=== PATIENT | female | born 2000 | race Two or more races ===

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

== ENCOUNTER 2022-03-10 10:30 | Inpatient (IN) | payer OTHER ==
[2022-03-10] MEDS ORDERED: ELECTROLYTE-148 SOLN 1,000 ML IV SCH (12:00)
[2022-03-10 12:08] LABS: BASO % 0.7 % (0-2.0); EOS % 0.5 % (0-4.5); HEMATOCRIT 35.6 % (32.4-45.2); HEMOGLOBIN 10.8 GM/dL (10.7-15.3); LYMPH % 12.1 % (8-40); MCH 21.8 pg (25.7-33.7); MCHC 30.4 g/dl (32.0-36.0); MEAN CELL VOLUME 71.8 fl (80-96); MONO % 6.3 % (3.8-10.2); NEUT % 80.4 % (42.8-82.8); PLATELET COUNT 303 10^3/uL (134-434); RBC 4.96 M/mm3 (3.60-5.2); RDW 19.7 % (11.6-15.6); WHITE BLOOD COUNT 12.8 K/mm3 (4.0-10.0)
[2022-03-10 12:17] LABS: INR 0.98 (0.83-1.09); PROTHROMBIN TIME (PATIENT) 11.3 SEC (9.7-13.0)
[2022-03-10 12:19] LABS: ACTIVATED PTT 30.2 SECONDS (25.2-36.5)
[2022-03-10 12:29] LABS: BLOOD UREA NITROGEN 10.5 mg/dL (7-18); CALCIUM 8.5 mg/dL (8.5-10.1)
[2022-03-10 12:33] LABS: CREATININE 0.8 mg/dL (0.55-1.3)
[2022-03-10 13:33] VITALS: BMI 39.6
[2022-03-10] MEDS ORDERED: BUTORPHANOL TARTRATE 1 MG/ML VIAL ONE (20:54)
[2022-03-10] MEDS ORDERED: PROMETHAZINE HCL 25 MG/1 ML VIAL ONE (20:54)
[2022-03-10] MEDS ORDERED: PROMETHAZINE HCL 25 MG/1 ML VIAL IVPUSH ONE (21:03)
[2022-03-10] MEDS ORDERED: BUTORPHANOL TARTRATE 1 MG/ML VIAL IVPB ONE (21:03)
[2022-03-10] MEDS ORDERED: OXYTOCIN 30 UNITS in 0.9% NS 30 UNIT/500 ML INFUS.BAG IVPB SCH (22:30)
[2022-03-10] MEDS ORDERED: OXYTOCIN 20 UNITS in 0.9% NS 20 UNIT/1,000 ML INFUS.BAG IV ONE (23:36)
[2022-03-11] MEDS ORDERED: BENZOCAINE 28 GM HEMORRHOIDAL OINTMENT TP PRN (00:39)
[2022-03-11] MEDS ORDERED: BENZOCAINE 20% 57 GM BOTTLE TP PRN (00:39)
[2022-03-11] MEDS ORDERED: oxyCODONE HCL 5 MG TABLET PO PRN (00:39)
[2022-03-11] MEDS ORDERED: BISACODYL 10 MG SUPP.RECT RC PRN (00:39)
[2022-03-11] MEDS ORDERED: WITCH HAZEL 50% (TUCKS) 40 PAD/JAR PAD TP PRN (00:39)
[2022-03-11] MEDS ORDERED: METHYLERGONOVINE MALEATE 0.2 MG/1 ML AMP IM PRN (00:39)
[2022-03-11] MEDS ORDERED: OXYTOCIN 20 UNITS in 0.9% NS 20 UNIT/1,000 ML INFUS.BAG IV SCH (00:45)
[2022-03-11 00:58] LABS: CORD HCO3 19.6 mmHg (20-29); CORD PCO2 53.3 mmHg (30-78); CORD pH 7.183 (7.14-7.44)
[2022-03-11] MEDS ORDERED: IBUPROFEN 600 MG TABLET (FP) PO ONE (01:30)
[2022-03-11] MEDS: IBUPROFEN 600 MG TABLET (FP) PO PRN ×2 (01:33→09:27)
[2022-03-11 01:55] LABS: CORD BASE EXCESS -6.4 mmol/L (0-2); CORD HCO3 20.7 mmHg (20-29); CORD PCO2 46.5 mmHg (30-78); CORD pH 7.267 (7.14-7.44)
[2022-03-11] MEDS: ACETAMINOPHEN 325 MG TABLET (FP) PO PRN ×2 (02:11→21:50)
[2022-03-11] MEDS: FERROUS SO4 325 MG TABLET (FP) PO SCH ×2 (09:27→17:35)
[2022-03-11] MEDS: PRENATAL VITAMINS W/ FOLIC ACID TABLET (FP) PO SCH (09:27)
[2022-03-11 09:34] LABS: BASO % 0.3 % (0-2.0); EOS % 0.1 % (0-4.5); HEMATOCRIT 29.3 % (32.4-45.2); HEMOGLOBIN 8.9 GM/dL (10.7-15.3); LYMPH % 11.7 % (8-40); MCH 21.6 pg (25.7-33.7); MCHC 30.3 g/dl (32.0-36.0); MEAN CELL VOLUME 71.3 fl (80-96); MEAN PLT VOLUME 8.5 fl (7.5-11.1); MONO % 5.1 % (3.8-10.2); NEUT % 82.8 % (42.8-82.8); PLATELET COUNT 253 10^3/uL (134-434); RDW 19.2 % (11.6-15.6); WHITE BLOOD COUNT 18.9 K/mm3 (4.0-10.0)
[2022-03-11 11:18] VITALS: RESP 18
[2022-03-12] MEDS: IBUPROFEN 600 MG TABLET (FP) PO PRN (08:09)
[2022-03-12] MEDS: FERROUS SO4 325 MG TABLET (FP) PO SCH (08:10)
[2022-03-12] MEDS: PRENATAL VITAMINS W/ FOLIC ACID TABLET (FP) PO SCH (09:13)
[2022-03-12 10:21] VITALS: BP 121/65; PULSE 96; TEMP 98.2
[2022-03-12] MEDS ORDERED: SENNOSIDES/DOCUSATE COMBO (SENNA PLUS) TABLET (UD) PO PRN (22:00)
== END 2022-03-12 11:55 | disposition home or self-care (01) | DRG 560 ==
LOC: JLDR 10:30 → J3W 03-11 02:03
PROVIDERS: ADMIT Obstetrics & Gynecology; ATTEND Obstetrics & Gynecology
PROC: 10E0XZZ Delivery of Products of Conception, External Approach (ICD-10-PCS; principal; 2022-03-10)
PROC: 0HQ9XZZ Repair Perineum Skin, External Approach (ICD-10-PCS; 2022-03-10)
PROC: 0W8NXZZ Division of Female Perineum, External Approach (ICD-10-PCS; 2022-03-10)
PROC: 10907ZC Drainage of Amniotic Fluid, Therapeutic from Products of Conception, Via Natural or Artificial Opening (ICD-10-PCS; 2022-03-10)
DX: O48.0 Post-term pregnancy (principal); O41.03X0 Oligohydramnios, third trimester, not applicable or unspecified; O77.0 Labor and delivery complicated by meconium in amniotic fluid; O99.214 Obesity complicating childbirth; E66.9 Obesity, unspecified; O90.81 Anemia of the puerperium; D50.9 Iron deficiency anemia, unspecified; Z3A.40 40 weeks gestation of pregnancy; Z37.0 Single live birth
CPT/HCPCS: 36415; 36600; 59409; 80048; 82803; 85025; 85610; 85730; 86780; 86850; 86900; 86901; C9803-CS; U0003; U0005

== ENCOUNTER 2023-02-08 19:48 | Emergency (ER) | payer OTHER ==
[2023-02-08 20:02] VITALS: BP 119/77; PULSE 88; RESP 16; TEMP 98; BMI 36.0
== END 2023-02-08 22:57 | disposition home or self-care (01) ==
LOC: FER 19:48
DX: O26.891 Other specified pregnancy related conditions, first trimester (principal); R10.30 Lower abdominal pain, unspecified; O99.891 Other specified diseases and conditions complicating pregnancy; M54.50 Low back pain, unspecified; Z3A.01 Less than 8 weeks gestation of pregnancy
CPT/HCPCS: 76817-TC; 81003; 81015; 84703; 87086; 99284-25

== ENCOUNTER 2023-05-14 21:23 | Emergency (ER) | payer OTHER ==
[2023-05-14 21:38] VITALS: BP 125/69; PULSE 103; RESP 18; TEMP 98.9; BMI 36.3
[2023-05-14 23:05] LABS: HEMATOCRIT 32.1 % (32.4-45.2); HEMOGLOBIN 10.5 G/dL (10.7-15.3); MCH 25.8 pg (25.7-33.7); MCHC 32.6 g/dl (32.0-36.0); MEAN PLT VOLUME 9.3 fl (7.5-11.1); PLATELET COUNT 267.5 10^3/uL (134-434); RBC 4.06 10^6/uL (3.60-5.2); RDW 17.8 % (11.6-15.6); WHITE BLOOD COUNT 13.3 10^3/uL (4.0-10.8)
[2023-05-14 23:07] LABS: HCG,QUALITATIVE URINE Positive
[2023-05-14 23:20] LABS: ALBUMIN 3.4 g/dl (3.4-5.0); ANISOCYTOSIS 1+; BILIRUBIN,TOTAL 0.2 mg/dl (0.2-1); CALCIUM 8.9 mg/dl (8.5-10.1); CREATININE 0.7 mg/dl (0.6-1.3); OVALOCYTE 1+; TOT PROT 6.5 g/dl (6.4-8.2)
== END 2023-05-14 23:46 | disposition home or self-care (01) ==
LOC: FER 21:23
DX: O20.9 Hemorrhage in early pregnancy, unspecified (principal); Z3A.22 22 weeks gestation of pregnancy
CPT/HCPCS: 36415; 76816-TC; 80053; 81003; 81015; 84703; 85027; 99284-25

== ENCOUNTER 2023-09-11 21:45 | Inpatient (IN) | payer OTHER ==
[2023-09-11] MEDS: LACTATED RINGERS SOLUTION 1,000 ML/1,000 ML INFUS.BAG IV SCH (22:40)
[2023-09-11 22:51] LABS: BASO % 0.2 % (0-2.0); EOS % 0.3 % (0-4.5); HEMATOCRIT 33.4 % (32.4-45.2); HEMOGLOBIN 10.7 GM/dL (10.7-15.3); LYMPH % 21.4 % (8-40); MCH 22.7 pg (25.7-33.7); MCHC 31.9 g/dl (32.0-36.0); MEAN PLT VOLUME 8.8 fl (7.5-11.1); MONO % 8.7 % (3.8-10.2); NEUT % 69.4 % (42.8-82.8); PLATELET COUNT 320 10^3/uL (134-434)
[2023-09-11 22:52] VITALS: BMI 37.4
[2023-09-11 23:01] LABS: INR 0.96 (0.83-1.09)
[2023-09-11 23:04] LABS: ACTIVATED PTT 28.9 SECONDS (25.2-36.5)
[2023-09-11 23:30] LABS: POTASSIUM 3.9 mmol/L (3.5-5.1)
[2023-09-11 23:32] LABS: BLOOD UREA NITROGEN 8.8 mg/dL (7-18)
[2023-09-11 23:35] LABS: CREATININE 0.5 mg/dL (0.55-1.3)
[2023-09-11] MEDS ORDERED: FENTANYL/BUPIVACAINE/NS/PF - PCEA - 50 ML DISP.SYRIN EP ONE (23:54)
[2023-09-12] MEDS ORDERED: FENTANYL CITRATE/PF 50 MCG/ML VIAL ONE
[2023-09-12] MEDS ORDERED: BUPIVACAINE HCL/PF 0.25% (2.5MG/ML) 10 ML VIAL ONE (00:01)
[2023-09-12] MEDS: FENTANYL/BUPIVACAINE/NS/PF - PCEA - 50 ML DISP.SYRIN EP SCH (00:20)
[2023-09-12] MEDS ORDERED: NALOXONE HCL 0.4 MG/ML VIAL IVPUSH PRN (00:24)
[2023-09-12] MEDS ORDERED: LIDOCAINE HCL 1% PRESERVATIVE FREE - 30ML VIAL ONE (02:08)
[2023-09-12] MEDS ORDERED: OXYTOCIN 20 UNITS in 0.9% NS 20 UNIT/1,000 ML INFUS.BAG IV ONE ×2 (02:09→02:10)
[2023-09-12] MEDS: OXYTOCIN 20 UNITS in 0.9% NS 20 UNIT/1,000 ML INFUS.BAG IV SCH (02:20)
[2023-09-12] MEDS ORDERED: BISACODYL 10 MG SUPP.RECT RC PRN (02:37)
[2023-09-12] MEDS ORDERED: BENZOCAINE 28 GM HEMORRHOIDAL OINTMENT TP PRN (02:37)
[2023-09-12] MEDS ORDERED: WITCH HAZEL 50% (TUCKS) 40 PAD/JAR PAD TP PRN (02:37)
[2023-09-12] MEDS ORDERED: oxyCODONE HCL 5 MG TABLET PO PRN (02:37)
[2023-09-12] MEDS ORDERED: METHYLERGONOVINE MALEATE 0.2 MG/1 ML AMP IM PRN (02:37)
[2023-09-12] MEDS ORDERED: BENZOCAINE 20% 57 GM BOTTLE TP PRN (02:37)
[2023-09-12 03:01] LABS: CORD BASE EXCESS -1.9 mmol/L (0-2); CORD HCO3 23.1 mmHg (20-29); CORD PCO2 40.5 mmHg (30-78); CORD pH 7.374 (7.14-7.44)
[2023-09-12 03:03] LABS: CORD BASE EXCESS -1.8 mmol/L (0-2); CORD HCO3 22.4 mmHg (20-29); CORD PCO2 36.6 mmHg (30-78); CORD pH 7.404 (7.14-7.44)
[2023-09-12] MEDS: FERROUS SO4 325 MG TABLET (FP) PO SCH (09:02)
[2023-09-12] MEDS: PRENATAL VITAMINS W/ FOLIC ACID TABLET (FP) PO SCH (09:02)
[2023-09-12] MEDS: ACETAMINOPHEN 325 MG TABLET (FP) PO PRN (11:51)
[2023-09-12] MEDS: IBUPROFEN 600 MG TABLET (FP) PO PRN (20:06)
[2023-09-13 06:38] LABS: BASO % 0.3 % (0-2.0); HEMATOCRIT 32.2 % (32.4-45.2); HEMOGLOBIN 10.1 GM/dL (10.7-15.3); LYMPH % 24.5 % (8-40); MCH 22.8 pg (25.7-33.7); MCHC 31.4 g/dl (32.0-36.0); MEAN CELL VOLUME 72.5 fl (80-96); MEAN PLT VOLUME 9.1 fl (7.5-11.1); MONO % 7.8 % (3.8-10.2); NEUT % 66.4 % (42.8-82.8); PLATELET COUNT 250 10^3/uL (134-434); RBC 4.44 M/mm3 (3.60-5.2); RDW 18.2 % (11.6-15.6); WHITE BLOOD COUNT 11.9 K/mm3 (4.0-10.0)
[2023-09-13] MEDS ORDERED: SENNOSIDES/DOCUSATE COMBO (SENNA PLUS) TABLET (UD) PO PRN (22:00)
[2023-09-14 08:59] VITALS: BP 122/75; PULSE 75; RESP 16; TEMP 98.2
== END 2023-09-14 12:40 | disposition home or self-care (01) | DRG 560 ==
LOC: JDEL 21:45 → JLDR 22:10 → J3W 09-12 05:00
PROVIDERS: ADMIT Obstetrics & Gynecology; ATTEND Obstetrics & Gynecology
PROC: 10E0XZZ Delivery of Products of Conception, External Approach (ICD-10-PCS; principal; 2023-09-12)
DX: O80 Encounter for full-term uncomplicated delivery (principal); Z3A.39 39 weeks gestation of pregnancy; Z37.0 Single live birth
CPT/HCPCS: 36415; 36600; 59409; 80048; 82803; 85025; 85610; 85730; 86780; 86850; 86900; 86901

== ENCOUNTER 2023-11-01 13:37 | Emergency (ER) | payer OTHER ==
[2023-11-01 13:52] VITALS: BP 121/86; PULSE 92; RESP 17; TEMP 97.5; BMI 34.7
[2023-11-01] MEDS ORDERED: ACETAMINOPHEN 500 MG TABLET (FP) ONE (15:12)
[2023-11-01] MEDS: ACETAMINOPHEN 500 MG TABLET (FP) PO ONE (15:18)
[2023-11-01 18:08] LABS: HIV INTERPRETATION NEGATIVE (NEGATIVE)
== END 2023-11-01 19:44 | disposition home or self-care (01) ==
LOC: JER 13:37
PROC: 2W3AX1Z Immobilization of Right Upper Arm using Splint (ICD-10-PCS; principal; 2023-11-01)
DX: S52.021A Displaced fracture of olecranon process without intraarticular extension of right ulna, initial encounter for closed fracture (principal); V00.832A Motorized mobility scooter colliding with stationary object, initial encounter
CPT/HCPCS: 29105; 36415; 70450-TC; 71046-TC-FY; 72125-TC; 72170-TC-FY; 73030-TC-RT-FY; 73070-TC-RT-FY; 73110-TC-RT-FY; 73562-TC-RT-FY; 73610-TC-LT-FY; 73630-TC-LT; 86803; 87389; 99285-25